=== PATIENT | male | born 1985 | race Caucasian/White ===

== ENCOUNTER 2017-07-17 02:22 | Inpatient (IN) | payer SELFPAY ==
[~2017-07-17] VITALS: Ht 170.2 cm; Wt 75.3 kg
[2017-07-17] MEDS ORDERED: QUET300T2 PO (02:31)
[2017-07-17] MEDS ORDERED: HYDROGEN PEROXIDE 118 ML SOLUTION ONE (02:46)
[2017-07-17 02:59] LABS: BASOPHILS # (AUTO) 0.05 K/uL (0.00-0.20); BASOPHILS % (AUTO) 0.5 % (0.0-2.0); EOSINOPHILS # (AUTO) 0.25 K/uL (0.00-0.70); HEMATOCRIT 39.9 % (41-53); HEMOGLOBIN 13.4 g/dL (13.5-17.5); LYMPHOCYTES # (AUTO) 2.2 K/uL (1.0-4.8); LYMPHOCYTES % (AUTO) 25.1 % (22.0-44.0); MEAN CORPUSCULAR HEMOGLOBIN 26.5 pg (26.0-34.0); MEAN CORPUSCULAR HGB CONC 33.6 G/dL (31.0-37.0); MEAN CORPUSCULAR VOLUME 79 fL (80-100); MONOCYTES # (AUTO) 0.7 K/uL (0.1-1.0); MONOCYTES % (AUTO) 7.7 % (2.0-9.0); NEUTROPHILS # (AUTO) 5.6 K/uL (1.8-7.7); NEUTROPHILS % (AUTO) 63.9 % (40.0-70.0); PLATELET COUNT (AUTO) 515 K/uL (150-450); RED BLOOD CELL COUNT(AUTO) 5.06 MIL/uL (4.50-5.90); RED CELL DISTRIBUTION WIDTH 12.7 % (11.5-14.5); WHITE BLOOD COUNT (AUTO) 8.8 K/uL (4.5-11.0)
[2017-07-17] MEDS ORDERED: HALOPERIDOL 5 MG TABLET PO PRN (03:00)
[2017-07-17] MEDS ORDERED: BACITRACIN 0.9 GM PACKET OINTMENT TP ONE (03:00)
[2017-07-17] MEDS ORDERED: HYDROGEN PEROXIDE 118 ML SOLUTION TP ONE (03:00)
[2017-07-17 03:08] LABS: ANION GAP 5 mmol/L (8-16); CALCIUM, TOTAL 8.8 mg/dL (8.8-10.5); CARBON DIOXIDE 31 mmol/L (22-29); CHLORIDE 104 mmol/L (98-107); GLOMERULAR FILTR. RATE CALC > 60 mL/min (>60); POTASSIUM 3.5 mmol/L (3.5-5.1); SODIUM SERUM 140 mmol/L (136-145); UREA NITROGEN, BLOOD 26 mg/dL (7-18)
[2017-07-17 03:11] LABS: ALANINE AMINOTRANSFERASE 111 U/L (12-78); ALBUMIN 3.3 g/dL (3.4-5.0); ASPARTATE AMINOTRANSFERASE 121 U/L (15-37); BILIRUBIN,TOTAL 0.3 mg/dL (0.1-1.0); CHOL/HDL RATIO 3.5 (4.2-7.3); TOTAL PROTEIN, SERUM 7.3 g/dL (6.4-8.2)
[2017-07-17] MEDS: LORazepam 2 MG TABLET PO PRN ×2 (14:15→18:44)
[2017-07-17 18:40] VITALS: BP 144/84
[2017-07-17] MEDS ORDERED: INFLUENZA VIRUS VACCINE QVS 2017-18 (3YR+)/PF 60 MCG/0.5 ML SYRINGE IM ONE (19:00)
[2017-07-17 19:09] VITALS: BP_SYST 140; BP_SYST 144; BP_DIAS 84
[2017-07-18 00:15] VITALS: BP 125/62
[2017-07-18 08:17] VITALS: BP 128/62
[2017-07-18] MEDS: AMOX TR/POT CLAV 500 MG/125 MG TABLET PO SCH ×2 (08:44→16:55)
[2017-07-18] MEDS ORDERED: QUEtiapine FUMARATE 300 MG TABLET PO SCH (09:00)
[2017-07-18] MEDS: LORazepam 2 MG TABLET PO PRN (09:54)
[2017-07-18] MEDS: QUEtiapine FUMARATE 100 MG TABLET PO SCH ×2 (09:54→16:44)
[2017-07-18] MEDS: NICOTINE 14 MG/24 HOUR PATCH TD SCH (09:54)
[2017-07-18 15:58] VITALS: BP 133/73
[2017-07-18] MEDS ORDERED: ACETAMINOPHEN 325 MG TABLET PO PRN (16:45)
[2017-07-18 16:50] VITALS: BP 133/73
[2017-07-18] MEDS ORDERED: QUEtiapine FUMARATE 100 MG TABLET PO SCH (17:00)
[2017-07-19 00:19] VITALS: BP 119/67
[2017-07-19] MEDS: QUEtiapine FUMARATE 100 MG TABLET PO SCH ×2 (08:33→16:18)
[2017-07-19] MEDS: NICOTINE 14 MG/24 HOUR PATCH TD SCH (08:33)
[2017-07-19] MEDS: AMOX TR/POT CLAV 500 MG/125 MG TABLET PO SCH ×2 (08:33→16:18)
[2017-07-19] MEDS: LORazepam 2 MG TABLET PO PRN ×2 (08:40→14:37)
[2017-07-19 08:47] VITALS: BP 139/94
[2017-07-19 17:00] VITALS: BP 138/84
[2017-07-19] MEDS: ZOLPIDEM TARTRATE 10 MG TABLET PO PRN (21:47)
[2017-07-20 04:29] VITALS: BP 134/78
[2017-07-20 08:16] VITALS: BP 135/76
[2017-07-20] MEDS: AMOX TR/POT CLAV 500 MG/125 MG TABLET PO SCH ×2 (08:24→17:00)
[2017-07-20] MEDS: LORazepam 2 MG TABLET PO PRN ×2 (08:24→13:37)
[2017-07-20] MEDS: QUEtiapine FUMARATE 100 MG TABLET PO SCH ×2 (08:24→17:00)
[2017-07-20] MEDS: NICOTINE 14 MG/24 HOUR PATCH TD SCH (09:00)
[2017-07-20 16:11] VITALS: BP 127/71
[2017-07-20] MEDS: ZOLPIDEM TARTRATE 10 MG TABLET PO PRN (21:19)
[2017-07-21 07:06] VITALS: BP 125/70
[2017-07-21 08:30] VITALS: BP 128/73
[2017-07-21] MEDS: AMOX TR/POT CLAV 500 MG/125 MG TABLET PO SCH ×2 (08:53→16:02)
[2017-07-21] MEDS: LORazepam 2 MG TABLET PO PRN ×2 (08:54→16:08)
[2017-07-21] MEDS: QUEtiapine FUMARATE 100 MG TABLET PO SCH ×2 (08:54→16:02)
[2017-07-21] MEDS: NICOTINE 14 MG/24 HOUR PATCH TD SCH (08:55)
[2017-07-21 16:02] VITALS: BP 124/75
[2017-07-21] MEDS: ZOLPIDEM TARTRATE 10 MG TABLET PO PRN (20:58)
[2017-07-22 06:11] VITALS: BP 128/79
[2017-07-22] MEDS: LORazepam 2 MG TABLET PO PRN ×2 (07:06→16:07)
[2017-07-22 08:55] VITALS: BP 122/60
[2017-07-22] MEDS: AMOX TR/POT CLAV 500 MG/125 MG TABLET PO SCH ×2 (09:28→16:07)
[2017-07-22] MEDS: NICOTINE 14 MG/24 HOUR PATCH TD SCH (09:28)
[2017-07-22] MEDS: QUEtiapine FUMARATE 100 MG TABLET PO SCH (09:28)
[2017-07-22 16:01] VITALS: BP 124/72
[2017-07-22] MEDS: PARoxetine HCL 20 MG TABLET PO SCH (16:07)
[2017-07-22] MEDS: ZOLPIDEM TARTRATE 10 MG TABLET PO PRN (20:07)
[2017-07-22] MEDS ORDERED: QUEtiapine FUMARATE 300 MG TABLET PO SCH (21:00)
[2017-07-23 01:58] VITALS: BP 110/65
[2017-07-23] MEDS: AMOX TR/POT CLAV 500 MG/125 MG TABLET PO SCH (08:16)
[2017-07-23] MEDS: PARoxetine HCL 20 MG TABLET PO SCH (08:16)
[2017-07-23] MEDS: LORazepam 2 MG TABLET PO PRN (08:21)
[2017-07-23] MEDS: NICOTINE 14 MG/24 HOUR PATCH TD SCH (08:21)
[2017-07-23 08:24] VITALS: BP_SYST 106; BP_SYST 123; BP_DIAS 60; BP_DIAS 62
[2017-07-23] MEDS ORDERED: AMOX1TAB15 PO (13:34)
[2017-07-23] MEDS ORDERED: PARO20TA24 PO (13:34)
== END 2017-07-23 14:30 | disposition home or self-care (01) | DRG 885 ==
LOC: EMS 02:24 → B2S 16:52
PROVIDERS: ADMIT Psychiatry & Neurology Child & Adolescent Psychiatry; ATTEND Psychiatry & Neurology Child & Adolescent Psychiatry
DX: F33.2 Major depressive disorder, recurrent severe without psychotic features (principal); R45.851 Suicidal ideations; L03.90 Cellulitis, unspecified; D64.9 Anemia, unspecified; Z28.21 Immunization not carried out because of patient refusal; F10.10 Alcohol abuse, uncomplicated; F15.10 Other stimulant abuse, uncomplicated; W54.0XXA Bitten by dog, initial encounter; F41.9 Anxiety disorder, unspecified; Z71.41 Alcohol abuse counseling and surveillance of alcoholic; Z71.51 Drug abuse counseling and surveillance of drug abuser
CPT/HCPCS: 99285; G0480